=== PATIENT | female | born 1960 | race Two or more races ===

== ENCOUNTER 2024-04-12 00:53 | Emergency (ER) | payer MEDICAID, OTHER ==
[~2024-04-12] VITALS: Ht 162.6 cm; Wt 73.7 kg
[2024-04-12 01:00] VITALS: BP 166/81; RESP 16; O2SAT 98
[2024-04-12 01:13] VITALS: PULSE 56
[2024-04-12 02:06] LABS: Urine Bacteria FEW /hpf (None Seen); Urine Blood 1+ /uL (Negative); Urine Budding Yeast OCCASIONAL /hpf (None Seen); Urine Clarity Clear (Clear); Urine Color Light-Yellow (Yellow); Urine Mucus FEW (None Seen); Urine Protein, UAD TRACE (Negative); Urine Specific Gravity 1.021 (1.001-1.035); Urine Urobilinogen Normal (Negative); Urine WBC 67 /hpf (0 - 5); Urine pH 6.5 (5.0-9.0)
== END 2024-04-12 04:45 | disposition left against medical advice (07) ==
LOC: ER 00:53
DX: R10.11 Right upper quadrant pain (principal); R06.02 Shortness of breath; R11.0 Nausea; Z53.21 Procedure and treatment not carried out due to patient leaving prior to being seen by health care provider
CPT/HCPCS: 81001; 93005